=== PATIENT | female | born 1995 | race African-American/Black ===

== ENCOUNTER 2017-07-13 07:44 | Emergency (ER) | payer SELFPAY ==
[2017-07-13 09:20] LABS: Bilirubin Negative (Negative); Blood, Urine Negative (Negative); Clarity CLOUDY (Clear); Glucose, Urine (Dipstick) Negative (Negative); Leukocyte Small (Negative); Nitrite Negative (Negative); Protein, Urine (Dipstick) Negative (Neg-Trace); Specific Gravity, Urine 1.024 (1.002-1.036); Urobilinogen 0.2 mg/dL (0.2-1.0)
[2017-07-13 09:22] LABS: Bacteria/HPF Rare-Few HPF (None Seen); Hyaline Casts/LPF 0-3 HYALINE CAST LPF (0-3 Hyaline); Pathc Cast-AUWi Flag 0.43 (0-2.49); RBC/HPF 0-3 HPF (0-3); WBC/HPF 0-3 HPF (0-3)
== END 2017-07-13 10:02 | disposition home or self-care (01) ==
LOC: ERS 07:44
DX: S29.012A Strain of muscle and tendon of back wall of thorax, initial encounter (principal); J45.20 Mild intermittent asthma, uncomplicated; X50.1XXA Overexertion from prolonged static or awkward postures, initial encounter
CPT/HCPCS: 81003; 81015; 99283

== ENCOUNTER 2018-05-13 08:37 | Emergency (ER) | payer SELFPAY ==
[2018-05-13] MEDS ORDERED: Ondansetron ODT 8 MG TAB ONE (09:21)
[2018-05-13 09:41] LABS: Bilirubin Negative (Negative); Blood, Urine Negative (Negative); Clarity CLEAR (Clear); Glucose, Urine (Dipstick) Negative (Negative); Leukocyte Small (Negative); Nitrite Negative (Negative); Protein, Urine (Dipstick) Negative (Neg-Trace); Specific Gravity, Urine 1.023 (1.002-1.036)
[2018-05-13 09:46] LABS: Bacteria/HPF None Seen HPF (None Seen); Hyaline Casts/LPF 0-3 HYALINE CAST LPF (0-3 Hyaline); Pathc Cast-AUWi Flag 0.58 (0-2.49); Squamous Epithelial 0-3 HPF (0-3)
== END 2018-05-13 10:40 | disposition home or self-care (01) ==
LOC: ERS 08:37
DX: O21.9 Vomiting of pregnancy, unspecified (principal); O99.011 Anemia complicating pregnancy, first trimester; O99.511 Diseases of the respiratory system complicating pregnancy, first trimester; J45.909 Unspecified asthma, uncomplicated; Z3A.01 Less than 8 weeks gestation of pregnancy
CPT/HCPCS: 81003; 81015; 99284

== ENCOUNTER 2018-08-12 21:26 | Emergency (ER) | payer OTHER ==
[2018-08-12 21:59] LABS: Bilirubin Negative (Negative); Blood, Urine Negative (Negative); Clarity CLEAR (Clear); Glucose, Urine (Dipstick) Negative (Negative); Leukocyte Trace (Negative); Nitrite Negative (Negative); Protein, Urine (Dipstick) 30 mg/dL (Neg-Trace); Specific Gravity, Urine 1.027 (1.002-1.036)
[2018-08-12 22:01] LABS: Bacteria/HPF None Seen HPF (None Seen); Hyaline Casts/LPF 4-6 HYALINE CAST LPF (0-3 Hyaline); Pathc Cast-AUWi Flag 0.54 (0-2.49); RBC/HPF None Seen HPF (0-3); WBC/HPF 0-3 HPF (0-3)
[2018-08-12] MEDS ORDERED: Acetaminophen 325 MG TAB ONE (22:13)
[2018-08-12] MEDS ORDERED: Azithromycin 250 MG TAB ONE (22:59)
[2018-08-12] MEDS ORDERED: cefTRIAXone\\ROCEPHIN 250 MG VIAL ONE ×2 (22:59→23:00)
[2018-08-12] MEDS ORDERED: Lidocaine 1% PF 5 ML VIAL ONE (23:01)
[2018-08-14 23:03] LABS: Chlam.trachomatis by PCR,Urine Not Detected (NotDetected)
== END 2018-08-12 23:38 | disposition home or self-care (01) ==
LOC: ERS 21:26
DX: O20.9 Hemorrhage in early pregnancy, unspecified (principal); O99.89 Other specified diseases and conditions complicating pregnancy, childbirth and the puerperium; M25.511 Pain in right shoulder; O99.512 Diseases of the respiratory system complicating pregnancy, second trimester; J45.909 Unspecified asthma, uncomplicated; Z79.899 Other long term (current) drug therapy; O99.012 Anemia complicating pregnancy, second trimester; Z3A.18 18 weeks gestation of pregnancy
CPT/HCPCS: 81003; 81015; 87086; 87480; 87491; 87510; 87591; 87660; 96372; J0696; J2001

== ENCOUNTER 2021-02-02 02:46 | Emergency (ER) | payer OTHER | END 2021-02-02 03:13 | disposition home or self-care (01) | LOC: ERS 02:46 | DX: T55.1X1A Toxic effect of detergents, accidental (unintentional), initial encounter (principal); L24.0 Irritant contact dermatitis due to detergents; I10 Essential (primary) hypertension; D50.9 Iron deficiency anemia, unspecified; J45.909 Unspecified asthma, uncomplicated; Y92.89 Other specified places as the place of occurrence of the external cause; Y99.0 Civilian activity done for income or pay | CPT/HCPCS: 99282 ==

== ENCOUNTER 2021-07-05 13:21 | Emergency (ER) | payer OTHER | END 2021-07-05 14:58 | disposition home or self-care (01) | LOC: ERS 13:21 | DX: S63.501A Unspecified sprain of right wrist, initial encounter (principal); I10 Essential (primary) hypertension; D50.9 Iron deficiency anemia, unspecified; W18.30XA Fall on same level, unspecified, initial encounter ==